=== PATIENT | male | born 1965 | race Caucasian/White ===

== ENCOUNTER 2018-01-16 06:45 | Day surgery (SDC) | payer OTHER ==
[2018-01-16] MEDS ORDERED: PROPOFOL 40 ML (08:22)
== END 2018-01-16 11:43 | disposition home or self-care (01) ==
LOC: GIL 06:45
DX: Z12.11 Encounter for screening for malignant neoplasm of colon (principal); D12.3 Benign neoplasm of transverse colon; K57.90 Diverticulosis of intestine, part unspecified, without perforation or abscess without bleeding; K64.8 Other hemorrhoids; E11.9 Type 2 diabetes mellitus without complications; E66.9 Obesity, unspecified; Z68.41 Body mass index [BMI] 40.0-44.9, adult
CPT/HCPCS: 45380; 82962; 88305

== ENCOUNTER 2018-09-19 19:18 | Inpatient (IN) | payer BC, OTHER ==
[2018-09-19] MEDS: SODIUM CHLORIDE 0.9% 1L BAG IV* (20:04)
[2018-09-19] MEDS: CEFTRIAXONE 1 GM/50 ML (PMX) 50 ML IVPB (20:06)
[2018-09-19] MEDS: IBUPROFEN 600 MG TAB PO (20:07)
[2018-09-19] MEDS: PIPER-TAZO 3.375 GM IV (PMX) 100 ML IVPB (20:28)
[2018-09-19] MEDS: VANCOMYCIN 1 GM (PMX) 250 ML IVPB (21:07)
[2018-09-19 21:13] LABS: ADD MAN DIFF? NO
[2018-09-19 21:15] LABS: ABNORMAL IP MESSAGE 1; BASOPHILS % 0.2 % (0.0-2.0); EOSINOPHILS % 0.1 % (0.0-7.0); HEMATOCRIT 40.7 % (42.0-52.0); HEMOGLOBIN 13.1 g/dl (14.0-18.0); LYMPHOCYTES # 1.9 10^3/ul (0.8-2.9); LYMPHOCYTES % 10.7 % (15.0-51.0); MEAN CORPUSCULAR HEMOGLOBIN 26.4 pg (29.0-33.0); MEAN CORPUSCULAR HGB CONC 32.2 g/dl (32.0-37.0); MEAN CORPUSCULAR VOLUME 82.1 fl (82.0-101.0); MONOCYTE # 1.7 10^3/ul (0.3-0.9); MONOCYTES % 9.2 % (0.0-11.0); NEUTROPHIL # 14.3 10^3/ul (1.6-7.5); NEUTROPHILS % 79.3 % (39.0-77.0); PLATELET COUNT 247 10^3/UL (140-415); POSITIVE DIFF @See below; RED BLOOD COUNT 4.96 10^6/ul (4.70-6.10)
[2018-09-19 21:19] LABS: INR 1.06; PROTIME 13.9 Sec (11.9-14.9); PT RATIO 1.1
[2018-09-19 21:20] LABS: PARTIAL THROMBOPLASTIN TIME 40.1 Sec (23.0-35.0)
[2018-09-19 21:39] LABS: ALANINE AMINOTRANSFERASE 17 IU/L (13-69); ALBUMIN 3.9 g/dl (3.3-4.9); ALBUMIN/GLOBULIN RATIO 0.79; ALKALINE PHOSPHATASE 147 IU/L (42-121); ANION GAP 13 (5-13); ASPARTATE AMINO TRANSFERASE 32 IU/L (15-46); BILIRUBIN,INDIRECT 0.6 mg/dl (0-1.1); BILIRUBIN,TOTAL 0.6 mg/dl (0.2-1.3); BLOOD UREA NITROGEN 19 mg/dl (7-20); CALCIUM 8.7 mg/dl (8.4-10.2); CARBON DIOXIDE 26 mmol/L (21-31); CHLORIDE 95 mmol/L (97-110); CREATININE 0.97 mg/dl (0.61-1.24); Estimated GFR > 60 mL/min (>60); GLUCOSE 249 mg/dl (70-220); LIPASE 14 U/L (23-300); POTASSIUM 3.8 mmol/L (3.5-5.1); SODIUM 134 mmol/L (135-144); TOTAL PROTEIN 8.8 g/dl (6.1-8.1)
[2018-09-19 23:06] LABS: LACTIC ACID 1.3 mmol/L (0.5-2.0)
[2018-09-20] MEDS ORDERED: PENDING SANTYL ORDER FOR WOUND CARE XX (01:30)
[2018-09-20] MEDS ORDERED: COLLAGENASE 5 GM (UD JAR) TOP (01:33)
[2018-09-20] MEDS: COLLAGENASE 5 GM (UD JAR) TOP ×2 (01:55→08:41)
[2018-09-20] MEDS ORDERED: NACL 0.9% 3 ML SYG IV (02:30)
[2018-09-20] MEDS ORDERED: HYDROCODONE/APAP (5/325) TAB PO ×2 (02:30)
[2018-09-20] MEDS ORDERED: ALBUTEROL/IPRATROPIUM (NEB) 3 ML AMP HHN (02:30)
[2018-09-20] MEDS ORDERED: VANCOMYCIN IV PER PHARMACY XX (02:30)
[2018-09-20] MEDS ORDERED: ACETAMINOPHEN 325 MG TAB PO (02:30)
[2018-09-20] MEDS ORDERED: ONDANSETRON 4 MG INJ IV (02:30)
[2018-09-20] MEDS: SOD CHLORIDE 0.9% 1,000 ML IV ×2 (03:29→12:30)
[2018-09-20] MEDS: VANCOMYCIN 1 GM 250 ML IVPB ×3 (03:29→20:24)
[2018-09-20] MEDS: PANTOPRAZOLE (EC) 40 MG TAB PO ×2 (06:16→17:13)
[2018-09-20 07:09] LABS: ADD MAN DIFF? NO
[2018-09-20 07:11] LABS: WHITE BLOOD COUNT 14.4 10^3/ul (4.8-10.8)
[2018-09-20 07:11] LABS: ABNORMAL IP MESSAGE 1; BASOPHIL # 0.1 10^3/ul (0.0-0.1); BASOPHILS % 0.3 % (0.0-2.0); EOSINOPHILS # 0.2 10^3/ul (0.0-0.5); EOSINOPHILS % 1.3 % (0.0-7.0); HEMATOCRIT 35.7 % (42.0-52.0); HEMOGLOBIN 11.4 g/dl (14.0-18.0); LYMPHOCYTES # 1.6 10^3/ul (0.8-2.9); MEAN CORPUSCULAR HEMOGLOBIN 26.5 pg (29.0-33.0); MEAN CORPUSCULAR HGB CONC 31.9 g/dl (32.0-37.0); MEAN CORPUSCULAR VOLUME 82.8 fl (82.0-101.0); MONOCYTE # 1.6 10^3/ul (0.3-0.9); MONOCYTES % 11.1 % (0.0-11.0); NEUTROPHIL # 10.9 10^3/ul (1.6-7.5); NEUTROPHILS % 75.6 % (39.0-77.0); PLATELET COUNT 194 10^3/UL (140-415); POSITIVE DIFF @See below; RED BLOOD COUNT 4.31 10^6/ul (4.70-6.10); RED CELL DISTRIBUTION WIDTH 13.2 % (11.5-14.5)
[2018-09-20 07:43] LABS: HEMOGLOBIN A1C 8.8 % (0-5.9)
[2018-09-20 08:04] LABS: ALANINE AMINOTRANSFERASE 22 IU/L (13-69); ALBUMIN 3.2 g/dl (3.3-4.9); ALBUMIN/GLOBULIN RATIO 0.76; ALKALINE PHOSPHATASE 110 IU/L (42-121); ANION GAP 8 (5-13); ASPARTATE AMINO TRANSFERASE 31 IU/L (15-46); BILIRUBIN,INDIRECT 0.5 mg/dl (0-1.1); BILIRUBIN,TOTAL 0.5 mg/dl (0.2-1.3); BLOOD UREA NITROGEN 14 mg/dl (7-20); CARBON DIOXIDE 25 mmol/L (21-31); CHLORIDE 106 mmol/L (97-110); CHOL/HDL RATIO 7.6 RATIO; CHOLESTEROL 100 mg/dl (100-200); CREATININE 0.71 mg/dl (0.61-1.24); Estimated GFR > 60 mL/min (>60); GLUCOSE 153 mg/dl (70-220); HDL CHOLESTEROL 13 mg/dl (28-71); MAGNESIUM 2.2 mg/dl (1.7-2.5); PHOSPHORUS 2.5 mg/dl (2.5-4.9); SODIUM 139 mmol/L (135-144); TOTAL PROTEIN 7.4 g/dl (6.1-8.1); TRIGLYCERIDES 93 mg/dl (0-149)
[2018-09-20 08:05] LABS: LDL CHOLESTEROL,CALCULATED 68 mg/dl
[2018-09-20] MEDS: INSULIN ASPART [NOVOLOG] 3 ML PEN SC ×7 (08:38→20:27)
[2018-09-20] MEDS: ASPIRIN (EC) 81 MG TAB PO (08:40)
[2018-09-20] MEDS: HEPARIN 5,000 UNIT/1 ML VIAL SC ×2 (08:41→20:28)
[2018-09-20] MEDS: CEFEPIME 1GM/50 ML (PMX) 50 ML IVPB ×2 (08:41→23:01)
[2018-09-20] MEDS ORDERED: VANCOMYCIN HCL 2 GM in SOD CHLORIDE 0.9% 500 ML IVPB (09:00)
[2018-09-20] MEDS ORDERED: MIDAZOLAM 1 MG/ML 2 ML INJ (17:23)
[2018-09-20] MEDS ORDERED: FENTAnyl 50 MCG/ML VIAL ×2 (17:23→17:52)
[2018-09-20] MEDS ORDERED: ONDANSETRON 4 MG INJ (17:39)
[2018-09-20] MEDS ORDERED: METOCLOPRAMIDE 10 MG INJ (17:39)
[2018-09-20] MEDS ORDERED: hydrALAzine 20 MG INJ (17:51)
[2018-09-20] MEDS: POLYMYXIN B 500000 UNIT INJ (18:13)
[2018-09-20] MEDS: VANCOMYCIN 1 GM INJ (18:13)
[2018-09-20] MEDS: POLYMYXIN/BACITRACIN 1L IRRIG (18:13)
[2018-09-20] MEDS: BACITRACIN 50000 UNITS INJ (18:14)
[2018-09-20] MEDS ORDERED: NON-FORMULARY/PATIENT OWN MED ([Insulin Glargine] 18 UNITS) SC (20:00)
[2018-09-20] MEDS: INSULIN GLARGINE [LANTus] (100 UNITS/ML) SYG SC (20:26)
[2018-09-20] MEDS: ASCORBIC ACID 500 MG TAB PO (20:29)
[2018-09-20 20:47] LABS: ERYTHROCYTE SEDIMENTATION RATE 72 mm/Hr (0-20)
[2018-09-20] MEDS: hydrALAzine 20 MG INJ IV (20:49)
[2018-09-20 20:57] LABS: PROCALCITONIN 0.33 ng/mL (0.00-0.10)
[2018-09-20 21:04] LABS: C-REACTIVE PROTEIN 23.3 mg/dl (0.0-0.9)
[2018-09-21 02:07] LABS: ADD MAN DIFF? NO
[2018-09-21] MEDS: ACCU-CHEK XX (02:08)
[2018-09-21 02:11] LABS: WHITE BLOOD COUNT 13.6 10^3/ul (4.8-10.8)
[2018-09-21 02:11] LABS: BASOPHILS % 0.3 % (0.0-2.0); EOSINOPHILS # 0.2 10^3/ul (0.0-0.5); EOSINOPHILS % 1.1 % (0.0-7.0); HEMATOCRIT 33.3 % (42.0-52.0); HEMOGLOBIN 10.9 g/dl (14.0-18.0); LYMPHOCYTES # 1.5 10^3/ul (0.8-2.9); LYMPHOCYTES % 10.8 % (15.0-51.0); MEAN CORPUSCULAR HEMOGLOBIN 26.6 pg (29.0-33.0); MEAN CORPUSCULAR HGB CONC 32.7 g/dl (32.0-37.0); MEAN CORPUSCULAR VOLUME 81.2 fl (82.0-101.0); MEAN PLATELET VOLUME 10.2 fl (7.4-10.4); MONOCYTE # 1.3 10^3/ul (0.3-0.9); MONOCYTES % 9.7 % (0.0-11.0); NEUTROPHIL # 10.5 10^3/ul (1.6-7.5); NEUTROPHILS % 77.2 % (39.0-77.0); PLATELET COUNT 213 10^3/UL (140-415); RED CELL DISTRIBUTION WIDTH 13.4 % (11.5-14.5)
[2018-09-21 02:26] LABS: ANION GAP 7 (5-13); BLOOD UREA NITROGEN 11 mg/dl (7-20); CALCIUM 7.5 mg/dl (8.4-10.2); CARBON DIOXIDE 24 mmol/L (21-31); CHLORIDE 104 mmol/L (97-110); CREATININE 0.74 mg/dl (0.61-1.24); Estimated GFR > 60 mL/min (>60); GLUCOSE 228 mg/dl (70-220); MAGNESIUM 1.9 mg/dl (1.7-2.5); PHOSPHORUS 2.6 mg/dl (2.5-4.9); POTASSIUM 3.7 mmol/L (3.5-5.1); SODIUM 135 mmol/L (135-144)
[2018-09-21 02:44] LABS: VANCOMYCIN,TROUGH 10.8 ug/ml (10.0-20.0)
[2018-09-21] MEDS: VANCOMYCIN 1 GM 250 ML IVPB (03:16)
[2018-09-21] MEDS: PANTOPRAZOLE (EC) 40 MG TAB PO ×2 (05:11→17:07)
[2018-09-21] MEDS: ASCORBIC ACID 500 MG TAB PO ×2 (08:17→21:07)
[2018-09-21] MEDS: MULTIVITAMINS/MINERALS TAB PO (08:17)
[2018-09-21] MEDS: COLLAGENASE 5 GM (UD JAR) TOP (08:17)
[2018-09-21] MEDS: ASPIRIN (EC) 81 MG TAB PO (08:18)
[2018-09-21] MEDS: DAKINS 0.0125%(1/40) 473 ML SOLUTION TP (08:18)
[2018-09-21] MEDS: CEFEPIME 1GM/50 ML (PMX) 50 ML IVPB ×2 (08:18→22:10)
[2018-09-21] MEDS: HEPARIN 5,000 UNIT/1 ML VIAL SC ×2 (08:20→21:09)
[2018-09-21] MEDS: INSULIN ASPART [NOVOLOG] 3 ML PEN SC ×7 (08:46→21:11)
[2018-09-21] MEDS: VANCOMYCIN HCL 1.25 GM in SOD CHLORIDE 0.9% 250 ML IVPB ×2 (11:24→18:22)
[2018-09-21] MEDS: INSULIN GLARGINE [LANTus] (100 UNITS/ML) SYG SC (21:10)
[2018-09-22] MEDS: ACCU-CHEK XX (01:43)
[2018-09-22] MEDS: VANCOMYCIN HCL 1.25 GM in SOD CHLORIDE 0.9% 250 ML IVPB (02:21)
[2018-09-22] MEDS: PANTOPRAZOLE (EC) 40 MG TAB PO ×2 (06:20→17:08)
[2018-09-22 08:29] LABS: WHITE BLOOD COUNT 10.3 10^3/ul (4.8-10.8)
[2018-09-22 08:29] LABS: HEMATOCRIT 34.2 % (42.0-52.0); HEMOGLOBIN 10.9 g/dl (14.0-18.0); MEAN CORPUSCULAR HEMOGLOBIN 26.3 pg (29.0-33.0); MEAN CORPUSCULAR HGB CONC 31.9 g/dl (32.0-37.0); MEAN CORPUSCULAR VOLUME 82.6 fl (82.0-101.0); MEAN PLATELET VOLUME 10.2 fl (7.4-10.4); PLATELET COUNT 258 10^3/UL (140-415); POSITIVE DIFF @See below; RED BLOOD COUNT 4.14 10^6/ul (4.70-6.10); RED CELL DISTRIBUTION WIDTH 13.4 % (11.5-14.5)
[2018-09-22 08:31] LABS: ADD MAN DIFF? YES
[2018-09-22] MEDS: ASPIRIN (EC) 81 MG TAB PO (08:52)
[2018-09-22] MEDS: MULTIVITAMINS/MINERALS TAB PO (08:52)
[2018-09-22] MEDS: LINAGLIPTIN 5 MG TABLET PO (08:52)
[2018-09-22] MEDS: ASCORBIC ACID 500 MG TAB PO ×2 (08:52→20:57)
[2018-09-22 08:53] LABS: ALBUMIN 2.8 g/dl (3.3-4.9); ANION GAP 9 (5-13); BLOOD UREA NITROGEN 9 mg/dl (7-20); CALCIUM 8.1 mg/dl (8.4-10.2); CARBON DIOXIDE 27 mmol/L (21-31); CHLORIDE 104 mmol/L (97-110); CREATININE 0.72 mg/dl (0.61-1.24); GLUCOSE 216 mg/dl (70-220); MAGNESIUM 1.9 mg/dl (1.7-2.5); PHOSPHORUS 2.8 mg/dl (2.5-4.9); POTASSIUM 3.9 mmol/L (3.5-5.1); SODIUM 140 mmol/L (135-144)
[2018-09-22] MEDS: COLLAGENASE 5 GM (UD JAR) TOP (08:53)
[2018-09-22] MEDS: HEPARIN 5,000 UNIT/1 ML VIAL SC ×2 (08:53→20:59)
[2018-09-22] MEDS: INSULIN ASPART [NOVOLOG] 3 ML PEN SC ×7 (08:54→21:00)
[2018-09-22] MEDS: DAKINS 0.0125%(1/40) 473 ML SOLUTION TP (08:56)
[2018-09-22] MEDS: CEFEPIME 1GM/50 ML (PMX) 50 ML IVPB (08:56)
[2018-09-22 10:02] LABS: ANISOCYTOSIS 1+ (0-0); BAND NEUTROPHILS #M 0.9 10^3/ul (0.0-0.6); BAND NEUTROPHILS % (M) 9 % (0-4); BASOPHIL #M 0.2 10^3/ul (0.0-0.0); BASOPHILS % (M) 2 % (0-2); EOSINOPHILS % (M) 4 % (0-7); LYMPHOCYTES #M 1.8 10^3/ul (0.8-2.9); LYMPHOCYTES % (M) 18 % (15-51); MONOCYTE #M 0.7 10^3/ul (0.3-0.9); MONOCYTES % (M) 7 % (0-11); PLATELET ESTIMATE NORMAL; POLYCHROMASIA 1+ (0-0); SEG NEUT #M 6.3 10^3/ul (1.6-7.5); SEGMENTED NEUTROPHILS (M) % 60 % (39-77); SMUDGE%M 13 % (0-0)
[2018-09-22 10:54] LABS: VANCOMYCIN,TROUGH 13.7 ug/ml (10.0-20.0)
[2018-09-22 10:58] LABS: PROCALCITONIN 0.19 ng/mL (0.00-0.10)
[2018-09-22 11:17] LABS: C-REACTIVE PROTEIN 20.2 mg/dl (0.0-0.9)
[2018-09-22 11:26] LABS: ERYTHROCYTE SEDIMENTATION RATE 95 mm/Hr (0-20)
[2018-09-22] MEDS: CEFTRIAXONE 1 GM/50 ML (PMX) 50 ML IVPB (11:38)
[2018-09-22] MEDS: INSULIN GLARGINE [LANTus] (100 UNITS/ML) SYG SC (20:59)
[2018-09-23] MEDS: ACCU-CHEK XX (02:00)
[2018-09-23] MEDS: PANTOPRAZOLE (EC) 40 MG TAB PO ×2 (05:40→17:06)
[2018-09-23 08:01] LABS: ADD MAN DIFF? NO
[2018-09-23] MEDS: ASPIRIN (EC) 81 MG TAB PO (08:03)
[2018-09-23] MEDS: COLLAGENASE 5 GM (UD JAR) TOP (08:03)
[2018-09-23] MEDS: ASCORBIC ACID 500 MG TAB PO ×2 (08:03→21:16)
[2018-09-23] MEDS: LINAGLIPTIN 5 MG TABLET PO (08:03)
[2018-09-23] MEDS: MULTIVITAMINS/MINERALS TAB PO (08:03)
[2018-09-23] MEDS: INSULIN ASPART [NOVOLOG] 3 ML PEN SC ×7 (08:04→21:00)
[2018-09-23] MEDS: HEPARIN 5,000 UNIT/1 ML VIAL SC ×2 (08:04→21:17)
[2018-09-23] MEDS: DAKINS 0.0125%(1/40) 473 ML SOLUTION TP (08:05)
[2018-09-23 08:07] LABS: BASOPHIL # 0.1 10^3/ul (0.0-0.1); BASOPHILS % 0.5 % (0.0-2.0); EOSINOPHILS # 0.5 10^3/ul (0.0-0.5); EOSINOPHILS % 5.3 % (0.0-7.0); HEMATOCRIT 32.9 % (42.0-52.0); HEMOGLOBIN 10.7 g/dl (14.0-18.0); LYMPHOCYTES # 2.2 10^3/ul (0.8-2.9); LYMPHOCYTES % 23.7 % (15.0-51.0); MEAN CORPUSCULAR HEMOGLOBIN 26.8 pg (29.0-33.0); MEAN CORPUSCULAR HGB CONC 32.5 g/dl (32.0-37.0); MEAN CORPUSCULAR VOLUME 82.3 fl (82.0-101.0); MEAN PLATELET VOLUME 10.3 fl (7.4-10.4); MONOCYTE # 0.8 10^3/ul (0.3-0.9); MONOCYTES % 9.1 % (0.0-11.0); NEUTROPHIL # 5.6 10^3/ul (1.6-7.5); NEUTROPHILS % 60.1 % (39.0-77.0); PLATELET COUNT 284 10^3/UL (140-415); RED CELL DISTRIBUTION WIDTH 13.6 % (11.5-14.5)
[2018-09-23 08:07] LABS: WHITE BLOOD COUNT 9.3 10^3/ul (4.8-10.8)
[2018-09-23 08:34] LABS: ALBUMIN 2.9 g/dl (3.3-4.9); ANION GAP 8 (5-13); BLOOD UREA NITROGEN 7 mg/dl (7-20); CARBON DIOXIDE 28 mmol/L (21-31); CHLORIDE 105 mmol/L (97-110); CREATININE 0.72 mg/dl (0.61-1.24); GLUCOSE 156 mg/dl (70-220); MAGNESIUM 2.1 mg/dl (1.7-2.5); PHOSPHORUS 4.3 mg/dl (2.5-4.9); POTASSIUM 3.5 mmol/L (3.5-5.1); SODIUM 141 mmol/L (135-144)
[2018-09-23] MEDS: LIDOCAINE 1% (MPF) 5 ML VIAL SC (09:30)
[2018-09-23 11:07] LABS: ERYTHROCYTE SEDIMENTATION RATE 106 mm/Hr (0-20)
[2018-09-23 11:13] LABS: C-REACTIVE PROTEIN 15.3 mg/dl (0.0-0.9)
[2018-09-23] MEDS: CEFTRIAXONE 1 GM/50 ML (PMX) 50 ML IVPB (11:47)
[2018-09-23 13:39] LABS: PROCALCITONIN 0.13 ng/mL (0.00-0.10)
[2018-09-23] MEDS: LISINOPRIL 5 MG TAB PO (14:13)
[2018-09-23] MEDS: hydrALAzine 20 MG INJ IV (17:06)
[2018-09-23] MEDS: INSULIN GLARGINE [LANTus] (100 UNITS/ML) SYG SC (21:17)
[2018-09-24] MEDS: PANTOPRAZOLE (EC) 40 MG TAB PO (05:41)
[2018-09-24 07:15] LABS: ADD MAN DIFF? NO
[2018-09-24 07:18] LABS: BASOPHILS % 0.5 % (0.0-2.0); EOSINOPHILS # 0.4 10^3/ul (0.0-0.5); EOSINOPHILS % 4.5 % (0.0-7.0); HEMATOCRIT 33.1 % (42.0-52.0); HEMOGLOBIN 10.6 g/dl (14.0-18.0); LYMPHOCYTES # 1.8 10^3/ul (0.8-2.9); LYMPHOCYTES % 22.8 % (15.0-51.0); MEAN CORPUSCULAR HEMOGLOBIN 26.5 pg (29.0-33.0); MEAN CORPUSCULAR VOLUME 82.8 fl (82.0-101.0); MEAN PLATELET VOLUME 9.9 fl (7.4-10.4); MONOCYTE # 0.7 10^3/ul (0.3-0.9); MONOCYTES % 8.8 % (0.0-11.0); NEUTROPHILS % 62.2 % (39.0-77.0); PLATELET COUNT 298 10^3/UL (140-415); RED CELL DISTRIBUTION WIDTH 13.9 % (11.5-14.5)
[2018-09-24 07:18] LABS: WHITE BLOOD COUNT 8.1 10^3/ul (4.8-10.8)
[2018-09-24 07:40] LABS: ANION GAP 8 (5-13); BLOOD UREA NITROGEN 7 mg/dl (7-20); CALCIUM 8.2 mg/dl (8.4-10.2); CARBON DIOXIDE 29 mmol/L (21-31); CHLORIDE 106 mmol/L (97-110); CREATININE 0.75 mg/dl (0.61-1.24); GLUCOSE 107 mg/dl (70-220); MAGNESIUM 2.2 mg/dl (1.7-2.5); PHOSPHORUS 4.2 mg/dl (2.5-4.9); POTASSIUM 3.6 mmol/L (3.5-5.1); SODIUM 143 mmol/L (135-144)
[2018-09-24] MEDS: INSULIN ASPART [NOVOLOG] 3 ML PEN SC ×2 (08:00→08:40)
[2018-09-24] MEDS: ASPIRIN (EC) 81 MG TAB PO (08:17)
[2018-09-24] MEDS: LISINOPRIL 10 MG TAB PO ×2 (08:17→09:32)
[2018-09-24] MEDS: MULTIVITAMINS/MINERALS TAB PO (08:18)
[2018-09-24] MEDS: ASCORBIC ACID 500 MG TAB PO (08:18)
[2018-09-24] MEDS: LINAGLIPTIN 5 MG TABLET PO (08:18)
[2018-09-24] MEDS: COLLAGENASE 5 GM (UD JAR) TOP (08:19)
[2018-09-24] MEDS: DAKINS 0.0125%(1/40) 473 ML SOLUTION TP (08:20)
[2018-09-24] MEDS: hydrALAzine 20 MG INJ IV (08:20)
[2018-09-24] MEDS: HEPARIN 5,000 UNIT/1 ML VIAL SC (08:23)
[2018-09-24] MEDS: POTASSIUM CHLORIDE (SR) 20 MEQ TAB PO (09:32)
[2018-09-24 10:40] LABS: C-REACTIVE PROTEIN 7.2 mg/dl (0.0-0.9)
[2018-09-24] MEDS: CEFTRIAXONE 1 GM/50 ML (PMX) 50 ML IVPB (11:17)
[2018-09-24 11:30] LABS: PROCALCITONIN 0.12 ng/mL (0.00-0.10)
[2018-09-24 11:36] LABS: ERYTHROCYTE SEDIMENTATION RATE 98 mm/Hr (0-20)
[2018-09-25] MEDS ORDERED: LISINOPRIL 20 MG TAB PO (09:00)
== END 2018-09-24 12:44 | disposition home health service (06) | DRG 854 ==
LOC: 5EC 20:34 → E/R 19:18
PROVIDERS: Internal Medicine
PROC: 0H9MXZX Drainage of Right Foot Skin, External Approach, Diagnostic (ICD-10-PCS; principal; 2018-09-20 17:00)
PROC: 0KBV0ZZ Excision of Right Foot Muscle, Open Approach (ICD-10-PCS; 2018-09-20 17:00)
PROC: 02HV33Z Insertion of Infusion Device into Superior Vena Cava, Percutaneous Approach (ICD-10-PCS; 2018-09-20 17:43)
DX: A41.01 Sepsis due to Methicillin susceptible Staphylococcus aureus (principal); M86.9 Osteomyelitis, unspecified; L03.115 Cellulitis of right lower limb; Z68.42 Body mass index [BMI] 45.0-49.9, adult; E11.621 Type 2 diabetes mellitus with foot ulcer; E11.610 Type 2 diabetes mellitus with diabetic neuropathic arthropathy; L97.519 Non-pressure chronic ulcer of other part of right foot with unspecified severity; E66.01 Morbid (severe) obesity due to excess calories; E11.65 Type 2 diabetes mellitus with hyperglycemia; I10 Essential (primary) hypertension; E78.5 Hyperlipidemia, unspecified; D64.9 Anemia, unspecified; I73.9 Peripheral vascular disease, unspecified; Z79.4 Long term (current) use of insulin
CPT/HCPCS: 36415; 36569; 71045; 73630; 73718; 73721; 76937; 80048; 80053; 80061; 80069; 80202; 82962; 83036; 83605; 83690; 83735; 84100; 84145; 85025; 85610; 85651; 85730; 86140; 87040-91; 87070; 87075; 87102; 93005; 93922; 96365; 96375; 97162; 99285-25

== ENCOUNTER 2018-10-14 14:48 | Emergency (ER) | payer BC, OTHER ==
[2018-10-14] MEDS: LIDOCAINE 1% (MPF) 5 ML VIAL SC (15:30)
== END 2018-10-14 18:14 | disposition home or self-care (01) ==
LOC: E/R 14:48
DX: Z45.2 Encounter for adjustment and management of vascular access device (principal); I10 Essential (primary) hypertension; E11.9 Type 2 diabetes mellitus without complications; E66.9 Obesity, unspecified
CPT/HCPCS: 36569; 71045; 76937